=== PATIENT | male | born 1960 | race Caucasian/White ===

== ENCOUNTER 2017-03-24 04:04 | Emergency (ER) | payer OTHER ==
[~2017-03-24] VITALS: Ht 182.9 cm; Wt 88.5 kg
[2017-03-24 04:42] LABS: Basophils # (auto) 0.2 uL; Basophils % (auto) 0.8 % (0.0-2.0); Eosinophils # (auto) 0 uL; Eosinophils % (auto) 0.1 % (0.0-7.0); Hematocrit 44.4 % (41.0-53.0); Hemoglobin 14.8 g/dL (13.5-17.5); Lymphocytes # (auto) 1.8 uL; Mean Corpuscular Hemoglobin 29.3 pg (28.0-32.0); Mean Corpuscular Hgb Conc. 33.4 g/dL (32.0-36.0); Mean Corpuscular Volume 87.7 fL (80.0-100.0); Mean Platelet Volume 9.3 fL (7.4-10.4); Monocytes # (auto) 1.4 uL; Monocytes % (auto) 7.1 % (0.0-12.0); Neutrophils # (auto) 16.8 uL; Platelet Count (auto) 227 10^3/uL (140-450); Red Cell Distribution Width 14.4 % (11.6-16.0); White Blood Cell 20.3 10^3/uL (4.4-10.8)
[2017-03-24] MEDS ORDERED: SODIUM CHLORIDE 0.9% 2,000 ML IV ONE (05:00)
[2017-03-24 05:13] VITALS: BP 100/67
[2017-03-24] MEDS ORDERED: ATROPINE SULF 0.5 MG/5ML SYR ONE ×2 (05:19→06:14)
[2017-03-24 05:29] LABS: INR 1.37 (0.9-1.15)
[2017-03-24 05:31] LABS: Albumin 3.6 g/dL (3.4-5.0); BUN/Creatinine Ratio 14.4; Bilirubin, Total 1.8 mg/dL (0.2-1.0); Calcium 8.5 mg/dL (8.5-10.1); Potassium 4.9 mmol/L (3.5-5.1); Total Protein 6.9 g/dL (6.4-8.2)
[2017-03-24] MEDS ORDERED: ETOMIDATE (2MG/ML) 20ML VIAL IV ONE ×2 (05:35→05:45)
[2017-03-24] MEDS ORDERED: SUCCINYLCHOLINE CHLORIDE 20 MG/ML 10ML VIAL IV ONE ×2 (05:35→05:45)
[2017-03-24] MEDS ORDERED: MIDAZOLAM DRIP 100 mg/100mL NS 100 ML IV ONE (05:43)
[2017-03-24] MEDS ORDERED: DOPamine 1600MCG/ML 250 ML IV ONE (05:45)
[2017-03-24] MEDS ORDERED: NOREPINEPHRINE BITARTRATE 250 ML IV SCH (05:45)
[2017-03-24] MEDS ORDERED: NOREPINEPHRINE BITARTRATE 250 ML IV ONE (05:45)
[2017-03-24] MEDS ORDERED: MIDAZOLAM DRIP 100 mg/100mL NS 100 ML IV SCH (05:46)
[2017-03-24] MEDS ORDERED: PIPERACILLIN-TAZOB 2.25GM 50 ML IV ONE ×2 (05:52→06:00)
[2017-03-24] MEDS ORDERED: VANCOMYCIN 1GM/250ML D5W 250 ML IV ONE ×2 (05:52→06:00)
[2017-03-24] MEDS ORDERED: ENOXAPARIN SOD 30 MG/0.3 ML SYRINGE IV ONE ×2 (06:00→06:15)
[2017-03-24] MEDS ORDERED: HEPARIN SODIUM (PORCINE) 5000 UNITS/ML 1ML VIAL IV ONE (06:00)
[2017-03-24] MEDS ORDERED: EPINEPHrine HCL 1 MG/10 ML SYRG ONE ×4 (06:03→06:16)
[2017-03-24] MEDS ORDERED: ANGIOMAX 250 MG VIAL IV ONE (06:13)
[2017-03-24] MEDS ORDERED: SODIUM CHL 0.9% 50 ML ONE (06:13)
[2017-03-24] MEDS ORDERED: EPTIFIBATIDE INJ (2MG/ML) 10ML VIAL IV ONE (06:14)
[2017-03-24] MEDS ORDERED: IOHEXOL 350 MG/ML 100ML IJ ONE (06:18)
[2017-03-24] MEDS ORDERED: HEPARIN IN NS 1000Units/500mL 0 ML ONE (06:18)
[2017-03-24] MEDS ORDERED: LIDOCAINE 2%HCL (LOCAL ANESTH.) INJ 20ML MDV ONE (06:18)
[2017-03-24 07:37] LABS: Urine Bilirubin Negative (Negative); Urine Blood 2+ /uL (Negative); Urine Color Yellow (Yellow); Urine Glucose 4+ mg/dL (Normal); Urine Ketone 1+ (Negative); Urine Nitrite Negative (Negative); Urine RBC 4 /hpf (0 - 3); Urine Squamous Epithelial Cell FEW /hpf (<5); Urine Urobilinogen Normal (Negative)
[2017-03-24] MEDS ORDERED: EPINEPHrine HCL 1 MG/10 ML SYRG IV ONE (11:31)
[2017-03-24] MEDS ORDERED: CALCIUM CHLOR(10%) 100MG/ML 10ML SYRINGE IV ONE (11:31)
[2017-03-24] MEDS ORDERED: SODIUM BICARBONATE 8.4% INJ 50ML SYRINGE IV ONE (11:31)
[2017-03-24] MEDS ORDERED: ATROPINE SULF 0.5 MG/5ML SYR IV ONE (11:31)
== END 2017-03-24 11:31 | disposition expired ==
LOC: ER 04:04
DX: R00.1 Bradycardia, unspecified (principal); R11.2 Nausea with vomiting, unspecified; R19.7 Diarrhea, unspecified; R51 Headache; E11.9 Type 2 diabetes mellitus without complications; I10 Essential (primary) hypertension
CPT/HCPCS: 31500; 36415; 36600; 71010; 80053; 80307; 81001; 82805; 82962; 84484; 85025; 85379; 85610; 92950; 93005; 96361; 96374; 99291; J0171; J0330; J0461; J1644; J1650; J2543; J3370; J7030